=== PATIENT | male | born 1975 | race Caucasian/White ===

== ENCOUNTER 2019-01-18 15:00 | Outpatient (CLI) | payer BC ==
--- NOTE | 2019-01-18 17:32 | CT ---
CT CHEST WITHOUT CONTRAST: HISTORY: Possible left perihilar nodule. COMPARISON: Chest x-ray from 01/10/2019. TECHNIQUE: Multiple contiguous axial images were obtained in a CT of the chest without contrast. Coronal reform ats were performed. FINDINGS: No focal infiltrates are seen in the lungs. No pulmonary nodules are identified. No pneumothorax or pleural effusion is seen. The heart is normal in size without focal cardiac abnormality. No hilar or mediastinal lymphadenopat hy is appreciated on this limited noncontrast examination. The visualized subdiaphragmatic structures are unremarkable. The chest wall soft tissues are unremar kable. There is a healing left anterior third rib fracture. This may represent the abnormality seen on chest x-ray. IMPRESSION: 1. No evidence of significant intrathoracic abnormality. 2. Healing left anterior third rib fracture. POS: [facility]
== END 2019-01-18 15:01 | disposition home or self-care (01) ==
LOC: SCSCT 15:00
PROVIDERS: ATTEND Family Medicine
DX: R91.1 Solitary pulmonary nodule (principal); S22.32XD Fracture of one rib, left side, subsequent encounter for fracture with routine healing
CPT/HCPCS: 71250